=== PATIENT | female | born 1965 | race Caucasian/White ===

== ENCOUNTER 2022-05-17 15:20 | Inpatient (IN) | payer OTHER ==
[~2022-05-17] VITALS: Ht 157.5 cm; Wt 70.3 kg
[2022-05-17 15:20] VITALS: BP_SYST 131
[2022-05-17] MEDS ORDERED: NS 1000 ML IV.SOLN IV ONE (15:45)
[2022-05-17] MEDS ORDERED: PIPERACILLIN/TAZO 3.375 GM in NS 50 ML IV ONE (15:45)
[2022-05-17] MEDS ORDERED: PIPERACILLIN/TAZOBACTAM 3.375 GM/VIAL (ZOSYN) IV ONE (16:16)
[2022-05-17 16:38] LABS: BASOPHILS % (AUTO) 0.3 % (0.0-2.0); EOSINOPHILS # (AUTO) 0.1 K/uL (0.0-0.4); EOSINOPHILS % (AUTO) 0.7 % (0.0-4.0); HEMATOCRIT 27.2 % (36-48); HEMOGLOBIN 9.2 g/dL (12.0-16.0); LYMPHOCYTES % (AUTO) 22.8 % (20.5-51.5); MEAN CORPUSCULAR HEMOGLOBIN 28 pg (27-31); MEAN CORPUSCULAR HGB CONC 34 % (32-36); MEAN CORPUSCULAR VOLUME 84 fL (79.0-98.0); MONOCYTES # (AUTO) 1.3 K/uL (0.0-1.0); MONOCYTES % (AUTO) 15.1 % (1.7-9.3); NEUTROPHILS # (AUTO) 5.4 K/uL (1.8-7.7); NEUTROPHILS % (AUTO) 61.1 % (40.0-70.0); PLATELET COUNT (AUTO) 240 K/uL (130-430); RED BLOOD CELL COUNT(AUTO) 3.25 MIL/uL (4.2-6.2); WHITE BLOOD COUNT (AUTO) 8.9 K/uL (4.8-10.8)
[2022-05-17 16:57] LABS: ANION GAP 8 (5-15); CALCIUM 8.3 mg/dL (8.4-11.0); CHLORIDE 102 mmol/L (98-107); CREATININE 0.98 mg/dL (0.55-1.30); GLUCOSE 108 mg/dL (70-99); UREA NITROGEN, BLOOD 24 mg/dL (8-21)
[2022-05-17 17:06] LABS: ALANINE AMINOTRANSFERASE 40 U/L (12-78); ALBUMIN 2.5 g/dL (3.4-4.8); ASPARTATE AMINOTRANSFERASE 29 U/L (10-37); GFR AFRICAN AMERICAN 75 mL/min (>90); TOTAL BILIRUBIN 0.3 mg/dL (0.0-1.0)
[2022-05-17] MEDS: VANCOMYCIN HCL 1,500 MG in NS 250 ML IV SCH (17:13)
[2022-05-17 17:14] LABS: BILIRUBIN,URINE NEGATIVE (NEGATIVE); COLOR,URINE YELLOW (YELLOW); GLUCOSE,URINE NEGATIVE (NEGATIVE); KETONES,URINE NEGATIVE (NEGATIVE); LEUKOCYTE ESTERASE ,URINE 1+ (NEGATIVE); NITRITE, URINE POSITIVE (NEGATIVE); PROTEIN URINE NEGATIVE (NEGATIVE); UROBILINOGEN,URINE 0.2 (0.2-1.0)
[2022-05-17 17:31] LABS: BLOOD, URINE TRACE (NEGATIVE); CLARITY/URINE HAZY (CLEAR)
[2022-05-17 17:34] LABS: RBC,URINE NONE SEEN /HPF (0-3)
[2022-05-17 17:35] LABS: BACTERIA,URINE FEW /HPF (None Seen); MUCUS,URINE None Seen /LPF (None Seen)
[2022-05-17] MEDS ORDERED: cefTRIAXone 1 GM IVPB PREMIX 50 ML IV SCH (19:15)
[2022-05-17] MEDS ORDERED: NACL 0.9% 1,000 ML IV SCH (19:15)
[2022-05-17] MEDS ORDERED: NACL 0.9% 1,000 ML IV ONE (21:45)
[2022-05-17] MEDS ORDERED: NOREPINEPHRINE 4 MG/4 ML VIAL IV ONE (23:16)
[2022-05-17] MEDS: NOREPINEPHRINE BITARTRATE 4 MG in D5W 246 ML IV PRN (23:36)
[2022-05-18] VITALS (24 sets, daily range): BP systolic 84–140
[2022-05-18 07:06] LABS: BASOPHILS % (AUTO) 0.4 % (0.0-2.0); EOSINOPHILS # (AUTO) 0.4 K/uL (0.0-0.4); EOSINOPHILS % (AUTO) 4.7 % (0.0-4.0); HEMOGLOBIN 9.4 g/dL (12.0-16.0); LYMPHOCYTES # (AUTO) 1.1 K/uL (1.0-5.5); LYMPHOCYTES % (AUTO) 13.6 % (20.5-51.5); MEAN CORPUSCULAR HEMOGLOBIN 29 pg (27-31); MEAN CORPUSCULAR HGB CONC 34 % (32-36); MEAN CORPUSCULAR VOLUME 85 fL (79.0-98.0); MONOCYTES # (AUTO) 0.9 K/uL (0.0-1.0); MONOCYTES % (AUTO) 11.6 % (1.7-9.3); NEUTROPHILS # (AUTO) 5.4 K/uL (1.8-7.7); NEUTROPHILS % (AUTO) 69.7 % (40.0-70.0); PLATELET COUNT (AUTO) 232 K/uL (130-430); RED BLOOD CELL COUNT(AUTO) 3.29 MIL/uL (4.2-6.2); RED CELL DISTRIBUTION WIDTH 17.1 % (9.0-15.0); WHITE BLOOD COUNT (AUTO) 7.8 K/uL (4.8-10.8)
[2022-05-18 07:24] LABS: CALCIUM 8.1 mg/dL (8.4-11.0); CREATININE 0.84 mg/dL (0.55-1.30)
[2022-05-18] MEDS: NACL 0.9% 1,000 ML IV SCH ×2 (08:16→21:27)
[2022-05-18] MEDS: ENOXAPARIN SODIUM 40 MG/0.4 ML SYRINGE SUBCUT SCH (09:38)
[2022-05-18] MEDS: CEFEPIME 2 GM in D5W 100 ML IV SCH (21:18)
[2022-05-19] VITALS (24 sets, daily range): BP systolic 92–167
[2022-05-19 06:52] LABS: BASOPHILS % (AUTO) 0.4 % (0.0-2.0); EOSINOPHILS # (AUTO) 0.4 K/uL (0.0-0.4); EOSINOPHILS % (AUTO) 4.2 % (0.0-4.0); HEMATOCRIT 28.1 % (36-48); HEMOGLOBIN 9.3 g/dL (12.0-16.0); LYMPHOCYTES # (AUTO) 1.5 K/uL (1.0-5.5); LYMPHOCYTES % (AUTO) 17.8 % (20.5-51.5); MEAN CORPUSCULAR HEMOGLOBIN 28 pg (27-31); MEAN CORPUSCULAR HGB CONC 33 % (32-36); MEAN CORPUSCULAR VOLUME 84 fL (79.0-98.0); MONOCYTES # (AUTO) 0.9 K/uL (0.0-1.0); MONOCYTES % (AUTO) 10.4 % (1.7-9.3); NEUTROPHILS # (AUTO) 5.6 K/uL (1.8-7.7); NEUTROPHILS % (AUTO) 67.2 % (40.0-70.0); PLATELET COUNT (AUTO) 265 K/uL (130-430); RED BLOOD CELL COUNT(AUTO) 3.32 MIL/uL (4.2-6.2); WHITE BLOOD COUNT (AUTO) 8.4 K/uL (4.8-10.8)
[2022-05-19 07:00] LABS: ALBUMIN 2.3 g/dL (3.4-4.8); CREATININE 0.64 mg/dL (0.55-1.30); TOTAL BILIRUBIN 0.5 mg/dL (0.0-1.0)
[2022-05-19] MEDS ORDERED: NOREPINEPHRINE 4 MG/4 ML VIAL IV ONE (09:18)
[2022-05-19] MEDS: CEFEPIME 2 GM in D5W 100 ML IV SCH ×2 (09:21→21:08)
[2022-05-19] MEDS: ENOXAPARIN SODIUM 40 MG/0.4 ML SYRINGE SUBCUT SCH (09:21)
[2022-05-19] MEDS: NACL 0.9% 1,000 ML IV SCH (11:20)
[2022-05-19] MEDS ORDERED: iohexoL 350 mgI/mL, 100 ML INFUS..BTL IV ONE (14:19)
[2022-05-20] VITALS (24 sets, daily range): BP systolic 82–132
[2022-05-20] MEDS: NACL 0.9% 1,000 ML IV SCH ×2 (04:06→16:20)
[2022-05-20 06:39] LABS: BASOPHILS % (AUTO) 0.3 % (0.0-2.0); EOSINOPHILS # (AUTO) 0.2 K/uL (0.0-0.4); EOSINOPHILS % (AUTO) 3.3 % (0.0-4.0); HEMATOCRIT 25.2 % (36-48); HEMOGLOBIN 8.3 g/dL (12.0-16.0); LYMPHOCYTES # (AUTO) 1.2 K/uL (1.0-5.5); LYMPHOCYTES % (AUTO) 20.1 % (20.5-51.5); MEAN CORPUSCULAR HEMOGLOBIN 28 pg (27-31); MEAN CORPUSCULAR HGB CONC 33 % (32-36); MEAN CORPUSCULAR VOLUME 85 fL (79.0-98.0); MONOCYTES # (AUTO) 0.8 K/uL (0.0-1.0); MONOCYTES % (AUTO) 13.6 % (1.7-9.3); NEUTROPHILS # (AUTO) 3.8 K/uL (1.8-7.7); NEUTROPHILS % (AUTO) 62.7 % (40.0-70.0); PLATELET COUNT (AUTO) 255 K/uL (130-430); RED BLOOD CELL COUNT(AUTO) 2.99 MIL/uL (4.2-6.2); RED CELL DISTRIBUTION WIDTH 17.4 % (9.0-15.0)
[2022-05-20 07:03] LABS: ALBUMIN 2.4 g/dL (3.4-4.8); CREATININE 0.59 mg/dL (0.55-1.30); TOTAL BILIRUBIN 0.5 mg/dL (0.0-1.0)
[2022-05-20] MEDS: CEFEPIME 2 GM in D5W 100 ML IV SCH ×2 (08:32→21:46)
[2022-05-20] MEDS: ENOXAPARIN SODIUM 40 MG/0.4 ML SYRINGE SUBCUT SCH (08:32)
[2022-05-20] MEDS: BISACODYL 10 MG/SUPPOSITORY RC PRN (08:32)
[2022-05-20] MEDS ORDERED: BENZ1TAB76 PO (15:38)
[2022-05-20] MEDS ORDERED: FAMO20TA8 PO (15:38)
[2022-05-20] MEDS ORDERED: MELA5TAB12 PO (15:38)
[2022-05-20] MEDS ORDERED: LIDO15CR11 TP (15:38)
[2022-05-20] MEDS ORDERED: BACL10TA PO (15:38)
[2022-05-20] MEDS ORDERED: MIDO5TAB4 PO (15:38)
[2022-05-20] MEDS ORDERED: CHLO473M12 MM (15:38)
[2022-05-20] MEDS ORDERED: FERR-69 PO (15:38)
[2022-05-20] MEDS ORDERED: HAL5 PO (15:38)
[2022-05-20] MEDS ORDERED: BACL20TA PO (15:38)
[2022-05-20] MEDS ORDERED: POLY15DR31 EACH EYE (15:38)
[2022-05-20] MEDS ORDERED: DOCU-144 PO (15:38)
[2022-05-20] MEDS ORDERED: PREG100C PO (15:38)
[2022-05-20] MEDS ORDERED: POLY17PO44 PO (15:38)
[2022-05-20] MEDS ORDERED: ACET325T PO (15:38)
[2022-05-20] MEDS ORDERED: CYAN100010 PO (15:38)
[2022-05-20] MEDS ORDERED: MULT-1117 PO (15:38)
[2022-05-20] MEDS ORDERED: HEPA500015 SUBCUT (15:38)
[2022-05-20] MEDS ORDERED: OXYIR5 PO (15:38)
[2022-05-20] MEDS: BALSAM PERU/CASTOR OIL 56.7 GM OINT...G. TP SCH (16:20)
[2022-05-20] MEDS: MELATONIN 5 MG TABLET PO SCH (21:47)
[2022-05-20] MEDS: MIDODRINE HCL 5 MG TABLET (PROAMATINE) PO SCH (21:47)
[2022-05-20] MEDS: oxyCODONE HCL 5 MG TABLET PO PRN (23:47)
[2022-05-21] VITALS (34 sets, daily range): BP systolic 86–185
[2022-05-21] MEDS: NOREPINEPHRINE BITARTRATE 4 MG in D5W 246 ML IV PRN (00:05)
[2022-05-21] MEDS: NACL 0.9% 1,000 ML IV SCH ×2 (04:59→16:15)
[2022-05-21 06:46] LABS: BASOPHILS % (AUTO) 0.2 % (0.0-2.0); EOSINOPHILS # (AUTO) 0.2 K/uL (0.0-0.4); EOSINOPHILS % (AUTO) 2.5 % (0.0-4.0); HEMATOCRIT 25.3 % (36-48); HEMOGLOBIN 8.5 g/dL (12.0-16.0); LYMPHOCYTES # (AUTO) 0.9 K/uL (1.0-5.5); LYMPHOCYTES % (AUTO) 13.9 % (20.5-51.5); MEAN CORPUSCULAR HEMOGLOBIN 28 pg (27-31); MEAN CORPUSCULAR HGB CONC 34 % (32-36); MEAN CORPUSCULAR VOLUME 84 fL (79.0-98.0); MONOCYTES # (AUTO) 0.8 K/uL (0.0-1.0); MONOCYTES % (AUTO) 13.4 % (1.7-9.3); NEUTROPHILS # (AUTO) 4.4 K/uL (1.8-7.7); PLATELET COUNT (AUTO) 242 K/uL (130-430); RED BLOOD CELL COUNT(AUTO) 3.02 MIL/uL (4.2-6.2); WHITE BLOOD COUNT (AUTO) 6.2 K/uL (4.8-10.8)
[2022-05-21 07:09] LABS: CALCIUM 8.3 mg/dL (8.4-11.0); CREATININE 0.6 mg/dL (0.55-1.30)
[2022-05-21] MEDS: CEFEPIME 2 GM in D5W 100 ML IV SCH ×2 (09:28→20:11)
[2022-05-21] MEDS: ENOXAPARIN SODIUM 40 MG/0.4 ML SYRINGE SUBCUT SCH (09:29)
[2022-05-21] MEDS: BALSAM PERU/CASTOR OIL 56.7 GM OINT...G. TP SCH (09:29)
[2022-05-21] MEDS: MIDODRINE HCL 5 MG TABLET (PROAMATINE) PO SCH ×3 (09:30→20:12)
[2022-05-21] MEDS ORDERED: MAGNESIUM SULFATE 1 GM/2 ML VIAL IVP ONE (11:45)
[2022-05-21] MEDS ORDERED: BACLOFEN 10 MG TABLET PO ONE (11:45)
[2022-05-21] MEDS ORDERED: MAGNESIUM SUL 2 GM/50 ML PREMIX IV ONE (12:00)
[2022-05-21] MEDS: BACLOFEN 10 MG TABLET PO SCH (20:11)
[2022-05-21] MEDS: MELATONIN 5 MG TABLET PO SCH (20:12)
[2022-05-22] VITALS (30 sets, daily range): BP systolic 88–121
[2022-05-22] MEDS: NACL 0.9% 1,000 ML IV SCH ×2 (04:33→17:03)
[2022-05-22] MEDS: oxyCODONE HCL 5 MG TABLET PO PRN (04:34)
[2022-05-22] MEDS: BACLOFEN 10 MG TABLET PO SCH ×2 (09:28→20:31)
[2022-05-22] MEDS: MIDODRINE HCL 5 MG TABLET (PROAMATINE) PO SCH ×3 (09:28→20:31)
[2022-05-22] MEDS: ENOXAPARIN SODIUM 40 MG/0.4 ML SYRINGE SUBCUT SCH (09:29)
[2022-05-22] MEDS: CEFEPIME 2 GM in D5W 100 ML IV SCH ×2 (09:29→20:30)
[2022-05-22] MEDS: BALSAM PERU/CASTOR OIL 56.7 GM OINT...G. TP SCH (09:34)
[2022-05-22] MEDS: BISACODYL 10 MG/SUPPOSITORY RC PRN (17:02)
[2022-05-22] MEDS: MELATONIN 5 MG TABLET PO SCH (20:31)
[2022-05-23] VITALS (22 sets, daily range): BP systolic 86–160
[2022-05-23 07:23] LABS: BASOPHILS % (AUTO) 0.7 % (0.0-2.0); EOSINOPHILS # (AUTO) 0.3 K/uL (0.0-0.4); EOSINOPHILS % (AUTO) 4.4 % (0.0-4.0); HEMATOCRIT 25.5 % (36-48); HEMOGLOBIN 8.4 g/dL (12.0-16.0); MEAN CORPUSCULAR HEMOGLOBIN 28 pg (27-31); MEAN CORPUSCULAR HGB CONC 33 % (32-36); MEAN CORPUSCULAR VOLUME 85 fL (79.0-98.0); MONOCYTES # (AUTO) 0.7 K/uL (0.0-1.0); MONOCYTES % (AUTO) 11.8 % (1.7-9.3); NEUTROPHILS # (AUTO) 3.9 K/uL (1.8-7.7); NEUTROPHILS % (AUTO) 66.1 % (40.0-70.0); PLATELET COUNT (AUTO) 299 K/uL (130-430); RED CELL DISTRIBUTION WIDTH 17.7 % (9.0-15.0); WHITE BLOOD COUNT (AUTO) 5.9 K/uL (4.8-10.8)
[2022-05-23 07:44] LABS: C-REACTIVE PROTEIN QUANT 8.9 mg/dL (0-0.5); CALCIUM 8.7 mg/dL (8.4-11.0); CREATININE 0.56 mg/dL (0.55-1.30)
[2022-05-23] MEDS: BACLOFEN 10 MG TABLET PO SCH ×2 (09:53→20:46)
[2022-05-23] MEDS: ENOXAPARIN SODIUM 40 MG/0.4 ML SYRINGE SUBCUT SCH (09:53)
[2022-05-23] MEDS: MIDODRINE HCL 5 MG TABLET (PROAMATINE) PO SCH ×3 (09:53→20:47)
[2022-05-23] MEDS: CEFEPIME 2 GM in D5W 100 ML IV SCH ×2 (09:54→20:46)
[2022-05-23] MEDS: BALSAM PERU/CASTOR OIL 56.7 GM OINT...G. TP SCH (09:54)
[2022-05-23] MEDS: NACL 0.9% 1,000 ML IV SCH ×2 (10:00→20:47)
[2022-05-23] MEDS: NOREPINEPHRINE BITARTRATE 4 MG in D5W 246 ML IV PRN (11:11)
[2022-05-23 11:51] LABS: ERYTHROCYTE SEDIMENTATION RATE 77 MM/HR (0-20)
[2022-05-23] MEDS: MELATONIN 5 MG TABLET PO SCH (20:46)
[2022-05-24] VITALS (22 sets, daily range): BP systolic 86–153
[2022-05-24 07:09] LABS: BASOPHILS % (AUTO) 0.4 % (0.0-2.0); EOSINOPHILS # (AUTO) 0.3 K/uL (0.0-0.4); HEMATOCRIT 23.5 % (36-48); LYMPHOCYTES # (AUTO) 1.1 K/uL (1.0-5.5); MEAN CORPUSCULAR HEMOGLOBIN 28 pg (27-31); MEAN CORPUSCULAR HGB CONC 34 % (32-36); MEAN CORPUSCULAR VOLUME 84 fL (79.0-98.0); MONOCYTES # (AUTO) 0.6 K/uL (0.0-1.0); MONOCYTES % (AUTO) 11.7 % (1.7-9.3); NEUTROPHILS # (AUTO) 3.1 K/uL (1.8-7.7); NEUTROPHILS % (AUTO) 61.9 % (40.0-70.0); PLATELET COUNT (AUTO) 325 K/uL (130-430); RED BLOOD CELL COUNT(AUTO) 2.81 MIL/uL (4.2-6.2); RED CELL DISTRIBUTION WIDTH 17.7 % (9.0-15.0)
[2022-05-24 07:28] LABS: CREATININE 0.61 mg/dL (0.55-1.30); TOTAL BILIRUBIN 0.3 mg/dL (0.0-1.0)
[2022-05-24] MEDS: BACLOFEN 10 MG TABLET PO SCH ×2 (08:04→21:27)
[2022-05-24] MEDS: BALSAM PERU/CASTOR OIL 56.7 GM OINT...G. TP SCH (08:04)
[2022-05-24] MEDS: CEFEPIME 2 GM in D5W 100 ML IV SCH ×2 (08:05→21:26)
[2022-05-24] MEDS: ENOXAPARIN SODIUM 40 MG/0.4 ML SYRINGE SUBCUT SCH (08:05)
[2022-05-24] MEDS: MIDODRINE HCL 5 MG TABLET (PROAMATINE) PO SCH ×3 (08:06→21:27)
[2022-05-24 10:35] LABS: ERYTHROCYTE SEDIMENTATION RATE 72 MM/HR (0-20)
[2022-05-24] MEDS: NACL 0.9% 1,000 ML IV SCH (11:04)
[2022-05-24] MEDS: MELATONIN 5 MG TABLET PO SCH (21:27)
[2022-05-25] VITALS (23 sets, daily range): BP systolic 106–159
[2022-05-25] MEDS: NACL 0.9% 1,000 ML IV SCH ×2 (00:15→17:00)
[2022-05-25 07:23] LABS: BASOPHILS % (AUTO) 0.6 % (0.0-2.0); EOSINOPHILS # (AUTO) 0.2 K/uL (0.0-0.4); EOSINOPHILS % (AUTO) 4.7 % (0.0-4.0); HEMATOCRIT 26.3 % (36-48); HEMOGLOBIN 8.9 g/dL (12.0-16.0); LYMPHOCYTES % (AUTO) 19.2 % (20.5-51.5); MEAN CORPUSCULAR HEMOGLOBIN 28 pg (27-31); MEAN CORPUSCULAR HGB CONC 34 % (32-36); MEAN CORPUSCULAR VOLUME 84 fL (79.0-98.0); MONOCYTES # (AUTO) 0.5 K/uL (0.0-1.0); MONOCYTES % (AUTO) 9.6 % (1.7-9.3); NEUTROPHILS # (AUTO) 3.4 K/uL (1.8-7.7); NEUTROPHILS % (AUTO) 65.9 % (40.0-70.0); PLATELET COUNT (AUTO) 373 K/uL (130-430); RED BLOOD CELL COUNT(AUTO) 3.15 MIL/uL (4.2-6.2); RED CELL DISTRIBUTION WIDTH 17.7 % (9.0-15.0); WHITE BLOOD COUNT (AUTO) 5.2 K/uL (4.8-10.8)
[2022-05-25 07:53] LABS: ALBUMIN 2.1 g/dL (3.4-4.8); CALCIUM 8.4 mg/dL (8.4-11.0); CREATININE 0.71 mg/dL (0.55-1.30); TOTAL BILIRUBIN 0.3 mg/dL (0.0-1.0)
[2022-05-25] MEDS: MIDODRINE HCL 5 MG TABLET (PROAMATINE) PO SCH ×3 (10:11→21:15)
[2022-05-25] MEDS: BALSAM PERU/CASTOR OIL 56.7 GM OINT...G. TP SCH (10:11)
[2022-05-25] MEDS: BACLOFEN 10 MG TABLET PO SCH ×2 (10:11→21:15)
[2022-05-25] MEDS: ENOXAPARIN SODIUM 40 MG/0.4 ML SYRINGE SUBCUT SCH (10:11)
[2022-05-25] MEDS: CEFEPIME 2 GM in D5W 100 ML IV SCH (10:22)
[2022-05-25] MEDS ORDERED: CEPH250C PO (14:09)
[2022-05-25] MEDS: LEVOFLOXACIN 250 MG/D5W 50 ML IV SCH (17:04)
[2022-05-25] MEDS: MELATONIN 5 MG TABLET PO SCH (21:15)
[2022-05-26 00:40] VITALS: BP_SYST 152
[2022-05-26] MEDS: oxyCODONE HCL 5 MG TABLET PO PRN (00:57)
[2022-05-26] MEDS: NACL 0.9% 1,000 ML IV SCH ×2 (01:01→17:47)
[2022-05-26 08:00] VITALS: BP_SYST 111
[2022-05-26] MEDS: BACLOFEN 10 MG TABLET PO SCH ×2 (08:31→21:50)
[2022-05-26] MEDS: MIDODRINE HCL 5 MG TABLET (PROAMATINE) PO SCH ×3 (08:32→21:00)
[2022-05-26] MEDS: ASCORBIC ACID 500 MG TABLET PO SCH (08:32)
[2022-05-26] MEDS: ENOXAPARIN SODIUM 40 MG/0.4 ML SYRINGE SUBCUT SCH (08:32)
[2022-05-26] MEDS: MULTIVITAMINS TAB 1 TABLET PO SCH (08:32)
[2022-05-26 11:36] VITALS: BP_SYST 109
[2022-05-26 15:22] VITALS: BP_SYST 100
[2022-05-26] MEDS: BALSAM PERU/CASTOR OIL 56.7 GM OINT...G. TP SCH (15:27)
[2022-05-26] MEDS: LEVOFLOXACIN 250 MG/D5W 50 ML IV SCH (17:46)
[2022-05-26] MEDS: MELATONIN 5 MG TABLET PO SCH (21:50)
[2022-05-26 23:00] VITALS: BP_SYST 132
[2022-05-27 02:19] VITALS: BP_SYST 94
[2022-05-27] MEDS: NACL 0.9% 1,000 ML IV SCH (05:25)
[2022-05-27 08:00] VITALS: BP_SYST 110
[2022-05-27] MEDS: ASCORBIC ACID 500 MG TABLET PO SCH (09:04)
[2022-05-27] MEDS: MULTIVITAMINS TAB 1 TABLET PO SCH (09:04)
[2022-05-27] MEDS: BACLOFEN 10 MG TABLET PO SCH ×2 (09:04→20:51)
[2022-05-27] MEDS: MIDODRINE HCL 5 MG TABLET (PROAMATINE) PO SCH ×3 (09:05→20:51)
[2022-05-27] MEDS: BALSAM PERU/CASTOR OIL 56.7 GM OINT...G. TP SCH (09:06)
[2022-05-27] MEDS: ENOXAPARIN SODIUM 40 MG/0.4 ML SYRINGE SUBCUT SCH (09:06)
[2022-05-27 11:23] VITALS: BP_SYST 114
[2022-05-27 12:45] VITALS: BP_SYST 134
[2022-05-27 15:25] VITALS: BP_SYST 132
[2022-05-27] MEDS: LEVOFLOXACIN 250 MG/D5W 50 ML IV SCH (17:37)
[2022-05-27 20:00] VITALS: BP_SYST 134
[2022-05-27] MEDS: MELATONIN 5 MG TABLET PO SCH (20:52)
[2022-05-28] VITALS: BP_SYST 162
[2022-05-28] MEDS: NACL 0.9% 1,000 ML IV SCH ×3 (00:55→21:35)
[2022-05-28] MEDS: MIDODRINE HCL 5 MG TABLET (PROAMATINE) PO SCH ×3 (10:41→21:24)
[2022-05-28] MEDS: MULTIVITAMINS TAB 1 TABLET PO SCH (10:42)
[2022-05-28] MEDS: ASCORBIC ACID 500 MG TABLET PO SCH (10:42)
[2022-05-28] MEDS: BACLOFEN 10 MG TABLET PO SCH ×2 (10:42→21:24)
[2022-05-28] MEDS: BALSAM PERU/CASTOR OIL 56.7 GM OINT...G. TP SCH (10:43)
[2022-05-28] MEDS: ENOXAPARIN SODIUM 40 MG/0.4 ML SYRINGE SUBCUT SCH (10:55)
[2022-05-28 11:54] VITALS: BP_SYST 100
[2022-05-28 18:16] VITALS: BP_SYST 134
[2022-05-28] MEDS: LEVOFLOXACIN 250 MG/D5W 50 ML IV SCH (18:25)
[2022-05-28 20:00] VITALS: BP_SYST 108
[2022-05-28] MEDS: MELATONIN 5 MG TABLET PO SCH (21:24)
[2022-05-29] VITALS: BP_SYST 158
[2022-05-29 08:00] VITALS: BP_SYST 104
[2022-05-29] MEDS: MIDODRINE HCL 5 MG TABLET (PROAMATINE) PO SCH ×3 (08:31→20:14)
[2022-05-29] MEDS: MULTIVITAMINS TAB 1 TABLET PO SCH (08:31)
[2022-05-29] MEDS: ASCORBIC ACID 500 MG TABLET PO SCH (08:31)
[2022-05-29] MEDS: BACLOFEN 10 MG TABLET PO SCH ×2 (08:31→20:14)
[2022-05-29] MEDS: ENOXAPARIN SODIUM 40 MG/0.4 ML SYRINGE SUBCUT SCH (08:32)
[2022-05-29] MEDS: BALSAM PERU/CASTOR OIL 56.7 GM OINT...G. TP SCH (08:32)
[2022-05-29] MEDS: NACL 0.9% 1,000 ML IV SCH ×2 (10:56→20:24)
[2022-05-29 11:34] VITALS: BP_SYST 108
[2022-05-29 15:25] VITALS: BP_SYST 134
[2022-05-29] MEDS: LEVOFLOXACIN 250 MG/D5W 50 ML IV SCH (17:06)
[2022-05-29 20:00] VITALS: BP_SYST 123
[2022-05-29] MEDS: MELATONIN 5 MG TABLET PO SCH (20:14)
[2022-05-30 00:47] VITALS: BP_SYST 136
[2022-05-30 08:00] VITALS: BP_SYST 99
[2022-05-30] MEDS: ENOXAPARIN SODIUM 40 MG/0.4 ML SYRINGE SUBCUT SCH (09:03)
[2022-05-30] MEDS: ASCORBIC ACID 500 MG TABLET PO SCH (09:04)
[2022-05-30] MEDS: MIDODRINE HCL 5 MG TABLET (PROAMATINE) PO SCH ×3 (09:04→20:51)
[2022-05-30] MEDS: MULTIVITAMINS TAB 1 TABLET PO SCH (09:04)
[2022-05-30] MEDS: BACLOFEN 10 MG TABLET PO SCH ×2 (09:05→20:51)
[2022-05-30] MEDS: BALSAM PERU/CASTOR OIL 56.7 GM OINT...G. TP SCH (09:06)
[2022-05-30] MEDS: NACL 0.9% 1,000 ML IV SCH (11:20)
[2022-05-30 11:26] VITALS: BP_SYST 114
[2022-05-30 12:04] LABS: TOTAL IRON BIND. CAPACITY 359 ug/dL (250-450)
[2022-05-30 15:25] VITALS: BP_SYST 108
[2022-05-30] MEDS: LEVOFLOXACIN 250 MG/D5W 50 ML IV SCH (16:26)
[2022-05-30 20:00] VITALS: BP_SYST 103
[2022-05-30] MEDS: MELATONIN 5 MG TABLET PO SCH (20:51)
[2022-05-31 00:50] VITALS: BP_SYST 131
[2022-05-31] MEDS: NACL 0.9% 1,000 ML IV SCH ×2 (02:55→18:00)
[2022-05-31 07:51] LABS: BASOPHILS % (AUTO) 0.5 % (0.0-2.0); EOSINOPHILS # (AUTO) 0.3 K/uL (0.0-0.4); EOSINOPHILS % (AUTO) 5.4 % (0.0-4.0); HEMATOCRIT 27.6 % (36-48); HEMOGLOBIN 9.1 g/dL (12.0-16.0); LYMPHOCYTES # (AUTO) 1.1 K/uL (1.0-5.5); LYMPHOCYTES % (AUTO) 20.8 % (20.5-51.5); MEAN CORPUSCULAR HEMOGLOBIN 27 pg (27-31); MEAN CORPUSCULAR HGB CONC 33 % (32-36); MEAN CORPUSCULAR VOLUME 82 fL (79.0-98.0); MONOCYTES # (AUTO) 0.6 K/uL (0.0-1.0); MONOCYTES % (AUTO) 11.7 % (1.7-9.3); NEUTROPHILS # (AUTO) 3.2 K/uL (1.8-7.7); NEUTROPHILS % (AUTO) 61.6 % (40.0-70.0); PLATELET COUNT (AUTO) 334 K/uL (130-430); RED BLOOD CELL COUNT(AUTO) 3.35 MIL/uL (4.2-6.2); RED CELL DISTRIBUTION WIDTH 17.8 % (9.0-15.0); WHITE BLOOD COUNT (AUTO) 5.2 K/uL (4.8-10.8)
[2022-05-31 08:00] VITALS: BP_SYST 117
[2022-05-31 08:39] LABS: CALCIUM 8.8 mg/dL (8.4-11.0); CREATININE 0.52 mg/dL (0.55-1.30)
[2022-05-31] MEDS: ASCORBIC ACID 500 MG TABLET PO SCH (10:52)
[2022-05-31] MEDS: MULTIVITAMINS TAB 1 TABLET PO SCH (10:52)
[2022-05-31] MEDS: ENOXAPARIN SODIUM 40 MG/0.4 ML SYRINGE SUBCUT SCH (10:53)
[2022-05-31] MEDS: MIDODRINE HCL 5 MG TABLET (PROAMATINE) PO SCH ×3 (10:53→21:36)
[2022-05-31] MEDS: BACLOFEN 10 MG TABLET PO SCH ×2 (10:53→21:37)
[2022-05-31] MEDS: BALSAM PERU/CASTOR OIL 56.7 GM OINT...G. TP SCH (10:54)
[2022-05-31 11:28] VITALS: BP_SYST 96
[2022-05-31 15:26] VITALS: BP_SYST 124
[2022-05-31] MEDS: LEVOFLOXACIN 250 MG/D5W 50 ML IV SCH (18:13)
[2022-05-31] MEDS: MELATONIN 5 MG TABLET PO SCH (21:37)
[2022-06-01 04:00] VITALS: BP_SYST 96
[2022-06-01] MEDS: NACL 0.9% 1,000 ML IV SCH ×2 (05:48→21:28)
[2022-06-01 08:00] VITALS: BP_SYST 98
[2022-06-01] MEDS: MIDODRINE HCL 5 MG TABLET (PROAMATINE) PO SCH ×3 (09:00→21:28)
[2022-06-01] MEDS: BACLOFEN 10 MG TABLET PO SCH ×2 (09:06→21:28)
[2022-06-01] MEDS: MULTIVITAMINS TAB 1 TABLET PO SCH (09:06)
[2022-06-01] MEDS: ASCORBIC ACID 500 MG TABLET PO SCH (09:06)
[2022-06-01] MEDS: ENOXAPARIN SODIUM 40 MG/0.4 ML SYRINGE SUBCUT SCH (09:07)
[2022-06-01] MEDS: BALSAM PERU/CASTOR OIL 56.7 GM OINT...G. TP SCH (09:07)
[2022-06-01 11:32] VITALS: BP_SYST 93
[2022-06-01 15:42] VITALS: BP_SYST 93
[2022-06-01 20:00] VITALS: BP_SYST 97
[2022-06-01] MEDS: MELATONIN 5 MG TABLET PO SCH (21:28)
[2022-06-02 00:36] VITALS: BP_SYST 126
[2022-06-02 08:00] VITALS: BP_SYST 111
[2022-06-02] MEDS: NACL 0.9% 1,000 ML IV SCH ×2 (08:15→17:44)
[2022-06-02] MEDS: MIDODRINE HCL 5 MG TABLET (PROAMATINE) PO SCH ×3 (08:47→20:45)
[2022-06-02] MEDS: ENOXAPARIN SODIUM 40 MG/0.4 ML SYRINGE SUBCUT SCH (08:47)
[2022-06-02] MEDS: ASCORBIC ACID 500 MG TABLET PO SCH (08:47)
[2022-06-02] MEDS: BACLOFEN 10 MG TABLET PO SCH ×2 (08:47→20:45)
[2022-06-02] MEDS: MULTIVITAMINS TAB 1 TABLET PO SCH (08:47)
[2022-06-02] MEDS: BALSAM PERU/CASTOR OIL 56.7 GM OINT...G. TP SCH (08:54)
[2022-06-02 11:31] VITALS: BP_SYST 102
[2022-06-02 15:27] VITALS: BP_SYST 111
[2022-06-02 20:14] VITALS: BP_SYST 116
[2022-06-02] MEDS: MELATONIN 5 MG TABLET PO SCH (20:45)
[2022-06-03 00:45] VITALS: BP_SYST 99
[2022-06-03 07:51] VITALS: BP_SYST 98
[2022-06-03] MEDS: MIDODRINE HCL 5 MG TABLET (PROAMATINE) PO SCH ×3 (08:27→21:52)
[2022-06-03] MEDS: ASCORBIC ACID 500 MG TABLET PO SCH (08:28)
[2022-06-03] MEDS: MULTIVITAMINS TAB 1 TABLET PO SCH (08:28)
[2022-06-03] MEDS: BACLOFEN 10 MG TABLET PO SCH ×2 (08:28→21:52)
[2022-06-03] MEDS: BALSAM PERU/CASTOR OIL 56.7 GM OINT...G. TP SCH (08:29)
[2022-06-03] MEDS: ENOXAPARIN SODIUM 40 MG/0.4 ML SYRINGE SUBCUT SCH (08:29)
[2022-06-03] MEDS: NACL 0.9% 1,000 ML IV SCH ×2 (08:30→21:51)
[2022-06-03 11:27] VITALS: BP_SYST 97
[2022-06-03 15:26] VITALS: BP_SYST 118
[2022-06-03 20:00] VITALS: BP_SYST 123
[2022-06-03] MEDS: MELATONIN 5 MG TABLET PO SCH (21:52)
[2022-06-04] VITALS: BP_SYST 132
[2022-06-04 07:53] VITALS: BP_SYST 112
[2022-06-04] MEDS: BACLOFEN 10 MG TABLET PO SCH ×3 (08:54→21:00)
[2022-06-04] MEDS: MULTIVITAMINS TAB 1 TABLET PO SCH (08:54)
[2022-06-04] MEDS: ASCORBIC ACID 500 MG TABLET PO SCH (08:54)
[2022-06-04] MEDS: MIDODRINE HCL 5 MG TABLET (PROAMATINE) PO SCH ×3 (08:55→22:40)
[2022-06-04] MEDS: ENOXAPARIN SODIUM 40 MG/0.4 ML SYRINGE SUBCUT SCH (08:55)
[2022-06-04] MEDS: BALSAM PERU/CASTOR OIL 56.7 GM OINT...G. TP SCH (08:56)
[2022-06-04 11:31] VITALS: BP_SYST 94
[2022-06-04] MEDS: NACL 0.9% 1,000 ML IV SCH (15:28)
[2022-06-04 15:34] VITALS: BP_SYST 130
[2022-06-04 19:00] VITALS: BP_SYST 112
[2022-06-04 20:00] VITALS: BP_SYST 112
[2022-06-04] MEDS ORDERED: MELATONIN 5 MG TABLET PO ONE (22:36)
[2022-06-04] MEDS: MELATONIN 5 MG TABLET PO SCH (22:40)
[2022-06-05] VITALS (7 sets, daily range): BP systolic 95–129
[2022-06-05] MEDS: NACL 0.9% 1,000 ML IV SCH ×2 (02:55→16:15)
[2022-06-05] MEDS: MULTIVITAMINS TAB 1 TABLET PO SCH (08:36)
[2022-06-05] MEDS: ASCORBIC ACID 500 MG TABLET PO SCH (08:36)
[2022-06-05] MEDS: ENOXAPARIN SODIUM 40 MG/0.4 ML SYRINGE SUBCUT SCH (08:37)
[2022-06-05] MEDS: MIDODRINE HCL 5 MG TABLET (PROAMATINE) PO SCH ×3 (08:37→21:56)
[2022-06-05] MEDS: BACLOFEN 10 MG TABLET PO SCH ×3 (08:37→21:56)
[2022-06-05] MEDS: BALSAM PERU/CASTOR OIL 56.7 GM OINT...G. TP SCH (08:38)
[2022-06-05] MEDS: ONDANSETRON HCL 4 MG/2 ML VIAL IVP PRN (10:49)
[2022-06-05] MEDS: MELATONIN 5 MG TABLET PO SCH (21:56)
[2022-06-06] VITALS: BP_SYST 110
[2022-06-06] MEDS: NACL 0.9% 1,000 ML IV SCH ×2 (04:53→23:24)
[2022-06-06 08:00] VITALS: BP_SYST 101
[2022-06-06] MEDS: MULTIVITAMINS TAB 1 TABLET PO SCH (09:21)
[2022-06-06] MEDS: BACLOFEN 10 MG TABLET PO SCH ×3 (09:22→21:47)
[2022-06-06] MEDS: MIDODRINE HCL 5 MG TABLET (PROAMATINE) PO SCH ×3 (09:22→21:47)
[2022-06-06] MEDS: ASCORBIC ACID 500 MG TABLET PO SCH (09:23)
[2022-06-06] MEDS: ENOXAPARIN SODIUM 40 MG/0.4 ML SYRINGE SUBCUT SCH (09:23)
[2022-06-06] MEDS: BALSAM PERU/CASTOR OIL 56.7 GM OINT...G. TP SCH (09:25)
[2022-06-06 11:17] VITALS: BP_SYST 101
[2022-06-06 15:27] VITALS: BP_SYST 153
[2022-06-06 20:00] VITALS: BP_SYST 122
[2022-06-06] MEDS: MELATONIN 5 MG TABLET PO SCH (21:47)
[2022-06-07] VITALS: BP_SYST 112
[2022-06-07] MEDS: NACL 0.9% 1,000 ML IV SCH ×2 (08:15→20:25)
[2022-06-07] MEDS: MULTIVITAMINS TAB 1 TABLET PO SCH (08:41)
[2022-06-07] MEDS: ASCORBIC ACID 500 MG TABLET PO SCH (08:41)
[2022-06-07] MEDS: BACLOFEN 10 MG TABLET PO SCH ×3 (08:41→20:28)
[2022-06-07] MEDS: ENOXAPARIN SODIUM 40 MG/0.4 ML SYRINGE SUBCUT SCH (08:42)
[2022-06-07] MEDS: BALSAM PERU/CASTOR OIL 56.7 GM OINT...G. TP SCH (08:50)
[2022-06-07] MEDS: MIDODRINE HCL 5 MG TABLET (PROAMATINE) PO SCH ×3 (09:00→20:26)
[2022-06-07 11:31] VITALS: BP_SYST 92
[2022-06-07 15:32] VITALS: BP_SYST 99
[2022-06-07 20:00] VITALS: BP_SYST 117
[2022-06-07] MEDS: MELATONIN 5 MG TABLET PO SCH (20:36)
[2022-06-08 01:56] VITALS: BP_SYST 104
[2022-06-08 07:16] LABS: CALCIUM 8.9 mg/dL (8.4-11.0); CREATININE 0.55 mg/dL (0.55-1.30)
[2022-06-08 07:28] LABS: BASOPHILS % (AUTO) 0.6 % (0.0-2.0); EOSINOPHILS # (AUTO) 0.2 K/uL (0.0-0.4); EOSINOPHILS % (AUTO) 4.7 % (0.0-4.0); HEMATOCRIT 28.1 % (36-48); HEMOGLOBIN 9.1 g/dL (12.0-16.0); LYMPHOCYTES # (AUTO) 1.3 K/uL (1.0-5.5); LYMPHOCYTES % (AUTO) 26.3 % (20.5-51.5); MEAN CORPUSCULAR HEMOGLOBIN 26 pg (27-31); MEAN CORPUSCULAR HGB CONC 33 % (32-36); MEAN CORPUSCULAR VOLUME 81 fL (79.0-98.0); MONOCYTES # (AUTO) 0.6 K/uL (0.0-1.0); MONOCYTES % (AUTO) 11.6 % (1.7-9.3); NEUTROPHILS # (AUTO) 2.9 K/uL (1.8-7.7); NEUTROPHILS % (AUTO) 56.8 % (40.0-70.0); PLATELET COUNT (AUTO) 315 K/uL (130-430); RED BLOOD CELL COUNT(AUTO) 3.46 MIL/uL (4.2-6.2); RED CELL DISTRIBUTION WIDTH 17.8 % (9.0-15.0); WHITE BLOOD COUNT (AUTO) 5.1 K/uL (4.8-10.8)
[2022-06-08 08:00] VITALS: BP_SYST 100
[2022-06-08] MEDS: MULTIVITAMINS TAB 1 TABLET PO SCH (09:46)
[2022-06-08] MEDS: MIDODRINE HCL 5 MG TABLET (PROAMATINE) PO SCH ×3 (09:46→22:18)
[2022-06-08] MEDS: ENOXAPARIN SODIUM 40 MG/0.4 ML SYRINGE SUBCUT SCH (09:46)
[2022-06-08] MEDS: BACLOFEN 10 MG TABLET PO SCH ×3 (09:46→22:17)
[2022-06-08] MEDS: ASCORBIC ACID 500 MG TABLET PO SCH (09:47)
[2022-06-08 11:41] VITALS: BP_SYST 104
[2022-06-08] MEDS: BALSAM PERU/CASTOR OIL 56.7 GM OINT...G. TP SCH (14:38)
[2022-06-08] MEDS: NACL 0.9% 1,000 ML IV SCH (14:39)
[2022-06-08 15:53] VITALS: BP_SYST 120
[2022-06-08 21:12] VITALS: BP_SYST 105
[2022-06-08] MEDS: MELATONIN 5 MG TABLET PO SCH (22:18)
[2022-06-09] MEDS: NACL 0.9% 1,000 ML IV SCH ×3 (00:15→19:03)
[2022-06-09 00:18] VITALS: BP_SYST 148
[2022-06-09 08:00] VITALS: BP_SYST 97
[2022-06-09] MEDS: ENOXAPARIN SODIUM 40 MG/0.4 ML SYRINGE SUBCUT SCH (10:14)
[2022-06-09] MEDS: BACLOFEN 10 MG TABLET PO SCH ×3 (10:14→22:06)
[2022-06-09] MEDS: ASCORBIC ACID 500 MG TABLET PO SCH (10:14)
[2022-06-09] MEDS: MIDODRINE HCL 5 MG TABLET (PROAMATINE) PO SCH ×3 (10:15→22:05)
[2022-06-09] MEDS: MULTIVITAMINS TAB 1 TABLET PO SCH (10:15)
[2022-06-09] MEDS: BALSAM PERU/CASTOR OIL 56.7 GM OINT...G. TP SCH (10:16)
[2022-06-09 11:26] VITALS: BP_SYST 131
[2022-06-09] MEDS: ONDANSETRON HCL 4 MG/2 ML VIAL IVP PRN (14:33)
[2022-06-09 15:29] VITALS: BP_SYST 127
[2022-06-09 20:00] VITALS: BP_SYST 123
[2022-06-09] MEDS: MELATONIN 5 MG TABLET PO SCH (22:05)
[2022-06-10 00:58] VITALS: BP_SYST 98
[2022-06-10 11:02] VITALS: BP_SYST 94
[2022-06-10] MEDS: BACLOFEN 10 MG TABLET PO SCH ×2 (11:03→15:58)
[2022-06-10] MEDS: MIDODRINE HCL 5 MG TABLET (PROAMATINE) PO SCH ×2 (11:04→16:01)
[2022-06-10] MEDS: MULTIVITAMINS TAB 1 TABLET PO SCH (11:04)
[2022-06-10] MEDS: ENOXAPARIN SODIUM 40 MG/0.4 ML SYRINGE SUBCUT SCH (11:04)
[2022-06-10] MEDS: ASCORBIC ACID 500 MG TABLET PO SCH (11:04)
[2022-06-10] MEDS: BALSAM PERU/CASTOR OIL 56.7 GM OINT...G. TP SCH (11:05)
[2022-06-10 11:25] VITALS: BP_SYST 92
[2022-06-10 15:28] VITALS: BP_SYST 112
[2022-06-10 15:31] VITALS: BP_SYST 112; BP_SYST 92
== END 2022-06-10 17:12 | DRG 871 ==
LOC: SED 15:20 → SMU 19:09 → SIC 23:51 → STU 05-26 00:35 → SMU 05-29 05:23
PROVIDERS: ADMIT Internal Medicine; ATTEND Internal Medicine
DX: A41.59 Other Gram-negative sepsis (principal); G82.50 Quadriplegia, unspecified; R65.21 Severe sepsis with septic shock; J96.01 Acute respiratory failure with hypoxia; N10 Acute pyelonephritis; E87.1 Hypo-osmolality and hyponatremia; L89.159 Pressure ulcer of sacral region, unspecified stage; D63.8 Anemia in other chronic diseases classified elsewhere; N31.9 Neuromuscular dysfunction of bladder, unspecified; Z20.822 Contact with and (suspected) exposure to COVID-19; Z74.01 Bed confinement status
CPT/HCPCS: 36415; 70470-TC; 71045; 72128; 76376; 80048; 80053; 81000; 83540; 83550; 83605; 83735; 84484; 85025; 85651-TC; 86140; 87040; 87081; 87086; 93005; 97110-GP; 97163-GP; 97530-GP; 99291; C1751; G0378; J0692; J0696; J1650; J1956; J2405; J2543; J3370; J3475; J7030; J7042; J7050; J7060; Q9967